=== PATIENT | male | born 1990 | race African-American/Black ===

== ENCOUNTER 2021-01-09 03:25 | Emergency (ER) | payer MEDICAID, OTHER ==
[~2021-01-09] VITALS: Ht 180.3 cm; Wt 90.0 kg
[2021-01-09] MEDS ORDERED: LORAZEPAM 1MG TABLET PO ONE (04:15)
[2021-01-09 04:36] LABS: CHLORIDE 99 mEq/L (98-107)
[2021-01-09 04:39] LABS: BASOPHILS % 0.5 % (0.0-2.0); EOSINOPHILS % 0.9 % (0.0-5.0); HEMATOCRIT. 41.5 % (42.0-52.0); HEMOGLOBIN. 13.9 g/dL (14.0-18.0); LYMPHOCYTES % 14.6 % (20.0-50.0); MEAN CORPUSCULAR VOLUME 89.5 fL (80.0-94.0); MEAN PLATELET VOLUME 7.2 fl (7.4-10.4); PLATELET 373 x1000/uL (130-400); RED BLOOD CELL COUNT 4.63 mill/uL (4.7-6.1); RED CELL DISTRIBUTION WIDTH 13.2 % (11.6-14.6)
[2021-01-09 05:31] VITALS: BP 127/86
== END 2021-01-09 05:40 | disposition home or self-care (01) ==
LOC: ER 03:25
DX: R00.2 Palpitations (principal); I10 Essential (primary) hypertension
CPT/HCPCS: 36415; 80053; 84484; 85025; 93005; 99284; Z7610

== ENCOUNTER 2022-01-28 21:09 | Emergency (ER) | payer MEDICAID, OTHER ==
[~2022-01-28] VITALS: Ht 180.3 cm; Wt 93.0 kg
[2022-01-28] MEDS ORDERED: ACETAMINOPHEN 325MG TABLET PO ONE (23:00)
[2022-01-28] MEDS ORDERED: METOCLOPRAMIDE HCL 10MG/2ML VIAL IV ONE (23:00)
[2022-01-28] MEDS ORDERED: SODIUM CHLORIDE 0.9% 1,000 ML IV ONE (23:00)
[2022-01-28 23:45] LABS: BASOPHILS % 0.3 % (0.0-2.0); EOSINOPHILS % 1.1 % (0.0-5.0); HEMATOCRIT. 45.2 % (42.0-52.0); HEMOGLOBIN. 15.4 g/dL (14.0-18.0); LYMPHOCYTES % 29.2 % (20.0-50.0); MEAN CORPUSCULAR HEMOGLOBIN 30.3 pg (28.0-32.0); MEAN PLATELET VOLUME 7.1 fl (7.4-10.4); MONOCYTES % 8.1 % (2.0-8.0); NEUTROPHILS % 61.3 % (40.0-76.0); PLATELET 395 x1000/uL (130-400); RED BLOOD CELL COUNT 5.07 mill/uL (4.7-6.1); RED CELL DISTRIBUTION WIDTH 13.5 % (11.6-14.6)
[2022-01-28 23:54] LABS: PROTHROMBIN TIME 10.9 sec (9.6-11.0)
[2022-01-29 00:09] LABS: CHLORIDE 100 mEq/L (98-107)
[2022-01-29 01:59] VITALS: BP 167/121
[2022-01-29] MEDS ORDERED: MORPHINE SULFATE 4 MG/ML CPJ (NOT FOR IM USE) IV ONE (02:00)
[2022-01-29] MEDS ORDERED: VALPROATE SODIUM 500 MG in SODIUM CHLORIDE 0.9% 100 ML IV STA (02:56)
[2022-01-29] MEDS ORDERED: ACETAMINOPHEN 325MG TABLET PO ONE (03:15)
[2022-01-29] MEDS ORDERED: IBUP-2029 MT (04:38)
== END 2022-01-29 06:13 | disposition home or self-care (01) ==
LOC: ER 21:09
DX: I10 Essential (primary) hypertension (principal); Z91.14 Patient's other noncompliance with medication regimen; Z20.822 Contact with and (suspected) exposure to COVID-19
CPT/HCPCS: 36415; 70450; 80053; 85025; 85610; 96361; 96365; 96375; 99284; J2270; J2765; J3490; J7030; J7050